=== PATIENT | female | born 1985 | race American Indian/Alaskan Native ===

== ENCOUNTER 2020-07-29 17:25 | Emergency (ER) | payer MEDICAID ==
[2020-07-29 17:40] VITALS: BP 150/90
[2020-07-29] MEDS ORDERED: IBUPROFEN 600 MG TAB PO ONE ×2 (18:20)
--- NOTE | 2020-07-29 18:22 | Event Note ---
ED Screening Note Date of service: 07/29/20 Time: 18:18 ED Screening Note: 35-year-old -[place] female presents to the emergency room for bilateral flank pain. Patient states that this started today but had noticed that she has a lump on left lateral flank. Patient states that when you press on the lump pain is exhibited. Patient denies any vertebral pain and there is no vertebral tenderness upon exam. Patient was given ibuprofen 600 mg for pain management a urinalysis and urine test has been ordered. This initial assessment/diagnostic orders/clinical plan/treatment(s) is/are subject to change based on patients health status, clinical progression and re-assessment by fellow clinical providers in the ED. Further treatment and workup at subsequent clinical providers discretion. Patient/guardian urged not to elope from the ED as their condition may be serious if not clinically assessed and managed. Initial orders include:
[2020-07-29 19:33] LABS: HCG Qualitative,Urine Negative (Negative)
[2020-07-29 19:36] LABS: Bilirubin,Urine NEG (Negative); Blood,Urine NEG (Negative); Color,Urine Yellow (Yellow); Mucus,Urine FEW /HPF; Protein,Urine <15 mg/dL mg/dL (Negative); Urobilinogen,Urine < 2.0 mg/dL (<2.0); WBC,Urine < 1.0 /HPF (0.0-6.0)
--- NOTE | 2020-07-29 20:51 | Emergency Department Report ---
ED Back Pain/Injury HPI - General Chief Complaint: Back Pain/Injury Stated Complaint: SEVERE BACK PAIN Time Seen by Provider: 07/29/20 20:44 Source: patient Limitations: No Limitations - History of Present Illness Initial Comments: 35-year-old -[place] female presents to the emergency room for bilateral flank pain. Patient states that this started today but had noticed that she has a lump on left lateral flank. Patient states that when you press on the lump pain is exhibited. Patient denies any vertebral pain and there is no vertebral tenderness upon exam. MD Complaint: back pain -: This afternoon Similar Symptoms Previously: No Severity: severe Severity scale (0 -10): 9 Quality: sharp, aching Consistency: constant Improves With: none Worsens With: none - Related Data Previous Rx's Medication Instructions Recorded Last Taken Type Ibuprofen [Motrin 800 MG tab] 800 mg PO Q8HR PRN #30 tablet 07/29/20 Unknown Rx Allergies Allergy/AdvReac Type Severity Reaction Status Date / Time No Known Allergies Allergy Unverified 07/29/20 17:39 ED Review of Systems ROS: Stated complaint: SEVERE BACK PAIN Other details as noted in HPI Comment: All other systems reviewed and negative ED Past Medical Hx - Past Medical History Previous Medical History?: No - Surgical History Past Surgical History?: No - Social History Smoking Status: Current Every Day Smoker Substance Use Type: Alcohol, Marijuana - Medications Home Medications: Home Medications Medication Instructions Recorded Confirmed Last Taken Type Ibuprofen [Motrin 800 MG tab] 800 mg PO Q8HR PRN #30 tablet 07/29/20 Unknown Rx ED Physical Exam - General Limitations: No Limitations General appearance: alert, in distress - Head Head exam: Present: atraumatic, normocephalic - Eye Eye exam: Present: normal appearance - ENT ENT exam: Present: mucous membranes dry - Neck Neck exam: Present: normal inspection, full ROM - Respiratory Respiratory exam: Present: normal lung sounds bilaterally. Absent: respiratory distress, accessory muscle use - Cardiovascular Cardiovascular Exam: Present: regular rate, normal rhythm. Absent: systolic murmur, diastolic murmur, rubs, gallop - Back Exam Back exam: Present: muscle spasm, other (Left side mid lower back flank lipoma) - Neurological Exam Neurological exam: Present: alert, oriented X3, normal gait - Psychiatric Psychiatric exam: Present: normal affect, normal mood - Skin Skin exam: Present: warm, dry, intact, normal color. Absent: rash ED Course Vital Signs 07/29/20 07/29/20 17:39 18:21 Temperature 97.9 F Pulse Rate 74 Respiratory 18 18 Rate Blood Pressure 150/90 O2 Sat by Pulse 100 Oximetry ED Medical Decision Making - Medical Decision Making 35-year-old -[place] female presents to the emergency room for bilateral flank pain. Patient states that this started today but had noticed that she has a lump on left lateral flank. Patient states that when you press on the lump pain is exhibited. Patient denies any vertebral pain and there is no vertebral tenderness upon exam. Urinalysis is negative. Patient reports ibuprofen has helped. Discussed with patient to follow-up with a primary care provider as well as a general surgeon for lipoma. Critical care attestation.: If time is entered above; I have spent that time in minutes in the direct care of this critically ill patient, excluding procedure time. ED Disposition Clinical Impression: Lipoma of back Back pain Qualifiers: Back pain location: low back pain Chronicity: acute Back pain laterality: bilateral Sciatica presence: without sciatica Qualified Code(s): M54.5 - Low back pain Disposition: DC-01 TO HOME OR SELFCARE Is pt being admited?: No Does the pt Need Aspirin: No Condition: Stable Instructions: Acute Back Pain, Adult Additional Instructions: Urinalysis is negative for any abnormalities no blood or infection. I recommend taking ibuprofen or Tylenol for pain management and follow-up with a primary care provider. You can also apply warm compresses or heating pad. Prescriptions: Ibuprofen [Motrin 800 MG tab] 800 mg PO Q8HR PRN #30 tablet PRN Reason: Pain , Severe (7-10) Referrals: NAWAF OLVERA MD [Staff Physician] - 3-5 Days LATISHA VEGA MD [Staff Physician] - 3-5 Days Forms: Work/School Release Form(ED)
== END 2020-07-29 21:00 | disposition home or self-care (01) ==
LOC: ED 17:25
DX: D17.1 Benign lipomatous neoplasm of skin and subcutaneous tissue of trunk (principal); M54.9 Dorsalgia, unspecified; F17.200 Nicotine dependence, unspecified, uncomplicated; F12.90 Cannabis use, unspecified, uncomplicated; Z79.899 Other long term (current) drug therapy
CPT/HCPCS: 81001; 81025; 99283